=== PATIENT | female | born 1940 | race Caucasian/White ===

== ENCOUNTER 2022-08-18 14:56 | Outpatient (CLI) | payer MEDICARE ==
[2022-08-18 19:56] LABS: BASOPHILS % (AUTO) 0.5 %; EOSINOPHILS # (AUTO) 0.2 10^3/uL (0.0-0.7); EOSINOPHILS % (AUTO) 2.9 %; HCT - HEMATOCRIT 44.6 % (37.0-47.0); HGB - HEMOGLOBIN 14.2 g/dL (12.0-16.0); LYMPHOCYTES # (AUTO) 1.2 10^3/uL (1.5-3.5); MEAN CORPUSCULAR HEMOGLOBIN 28.5 pg (27.0-31.0); MEAN CORPUSCULAR HGB CONC 31.8 g/dL (32.0-36.0); MEAN CORPUSCULAR VOLUME 89.4 fL (81.0-99.0); MEAN PLATELET VOLUME 10.4 fL (7.9-10.8); MONOCYTES # (AUTO) 0.5 10^3/uL (0.0-1.0); MONOCYTES % (AUTO) 7.7 %; NEUTROPHILS # (AUTO) 4.1 10^3/uL (1.5-6.6); NEUTROPHILS % (AUTO) 68.4 %; PLT - PLATELET COUNT 224 10^3/uL (130-450); RED BLOOD COUNT 4.99 10^6/uL (4.20-5.40); RED CELL DISTRIBUTION WIDTH 12.6 % (12.0-15.0)
[2022-08-18 20:14] LABS: ALBUMIN 4.5 g/dL (3.2-5.5); ALBUMIN/GLOBULIN RATIO 1.7 (1.0-2.2); BILIRUBIN,TOTAL 0.4 mg/dL (0.2-1.0); CALCIUM 9.3 mg/dL (8.5-10.3); CREATININE 0.9 mg/dL (0.4-1.0); POTASSIUM 3.8 mmol/L (3.5-5.0); TOTAL PROTEIN 7.2 g/dL (6.7-8.2)
[2022-08-18 20:30] LABS: FERRITIN 237.7 ng/mL (11.0-306.8)
== END 2022-08-18 14:57 | disposition home or self-care (01) ==
LOC: LAB.S 14:56
PROVIDERS: ATTEND Family Medicine
DX: D51.9 Vitamin B12 deficiency anemia, unspecified (principal); R53.83 Other fatigue; R79.0 Abnormal level of blood mineral
CPT/HCPCS: 36415; 80053; 82607; 82728; 83540; 84466; 85025

== ENCOUNTER 2023-03-24 09:00 | Day surgery (SDC) | payer MEDICARE ==
[2023-03-24] MEDS ORDERED: LACTATED RINGERS 1,000 ML IV ONE (09:17)
--- NOTE | 2023-03-24 10:05 | ANESTHESIA ---
Pre-Anesthesia VS, & Labs - Diagnosis screening, gerd - Procedure egd, colonoscopy Vital Signs: Temp Pulse Resp BP Pulse Ox O2 Flow Rate 36.4 C L 68 16 158/82 H 98 03/24/23 09:24 03/24/23 09:24 03/24/23 09:24 03/24/23 09:24 03/24/23 09:24 Height: 5 ft 2 in Weight (kg): 59 kg Body Mass Index: 23.8 BMI Classification: Normal - NPO >8 hours - Is Patient ?: No - Lab Results Lab results reviewed: Yes Home Medications and Allergies Home Medications: Ambulatory Orders Calcium/Magnesium/Vitamin D3 [Cj-Mag Complex 300-150 mg Tab] 1 each PO DAILY 03/24/23 Cholecalciferol [Vitamin D3] 5,000 unit PO DAILY 03/24/23 Cyanocobalamin (Vitamin B-12) [B-12] 1,000 mcg PO DAILY 03/24/23 L. Reuteri/L. Rhamnosus [Fem Dophilus 1 Billion Cfu Cap] 1 each PO DAILY Quercetin 500 mg PO DAILY 03/24/23 Vitamin K2 [Mk-7] 90 mcg PO DAILY 03/24/23 Calcium/Magnesium/Vitamin D3 [Cj-Mag Complex 300-150 mg Tab] 1 each PO DAILY 03/24/23 Cholecalciferol [Vitamin D3] 5,000 unit PO DAILY 03/24/23 Cyanocobalamin (Vitamin B-12) [B-12] 1,000 mcg PO DAILY 03/24/23 L. Reuteri/L. Rhamnosus [Fem Dophilus 1 Billion Cfu Cap] 1 each PO DAILY 03/24/23 Quercetin 500 mg PO DAILY 03/24/23 Vitamin K2 [Mk-7] 90 mcg PO DAILY 03/24/23 Allergies/Adverse Reactions: Allergies Allergy/AdvReac Type Severity Reaction Status Date / Time No Known Drug Allergies Allergy Verified 03/24/23 09:16 Anes History & Medical History - Anesthetic History Anesthesia Complications: reports: No previous complications, Opioid sensitivity Family history of Anesthesia Complications: Denies Family history of Malignant Hyperthermia: Denies - Medical History Cardiovascular: reports: None Pulmonary: reports: None Gastrointestinal: reports: GERD Urinary: reports: None Musculoskeletal: reports: None Endocrine/Autoimmune: reports: None Skin: reports: None - Surgical History General: reports: Appendectomy Eyes Ears Nose Throat (EENT): reports: Tonsil/Adenoidectomy Gynecologic: reports: Hysterectomy Exam General: Alert, Oriented x3, Cooperative Dental: WNL, Other (some mild c/o pain when jaw opened too far) Mouth Openin Fingerbreadth Neck Mobility: Normal Mallampati classification: II Respiratory: Lungs clear, Normal breath sounds, No respiratory distress Cardiovascular: Regular rate Neurological: Normal speech Mental/Cognitive Status: Alert/Oriented X3, Normal for patient Cognitive Status: Within normal limits Plan Anesthesia Type: Total IV Consent for Procedure(s) Verified and Reviewed: Yes Code Status: Attempt Resuscitation ASA classification: 2-Mild systemic disease Is this case an emergency?: No
[2023-03-24] MEDS ORDERED: PROPOFOL 500 MG/50 ML 500 MG/50 ML VIAL ONE (10:06)
[2023-03-24] MEDS ORDERED: MIDAZOLAM 2 MG/2 ML VIAL ONE (10:06)
[2023-03-24] MEDS ORDERED: LIDOCAINE-PF 2% 10 ML AMP SUBQ ONE (10:06)
[2023-03-24] MEDS ORDERED: LACTATED RINGERS 600 ML IV ONE (11:01)
[2023-03-24] MEDS ORDERED: IPRATROPIUM/ALBUTEROL 3 ML NEB INH ONE (11:47)
[2023-03-24 12:24] VITALS: O2SAT 98
[2023-03-24 12:34] VITALS: BP 110/88
--- NOTE | 2023-03-24 14:33 | ANESTHESIA POST OP EVALUATION ---
Anesthesia Post Eval - Post Anesthesia Eval Vitals: Last Vital Signs Temp 36.5 C 03/24/23 12:15 Pulse 71 03/24/23 12:15 Resp 14 03/24/23 12:15 BP 110/88 H 03/24/23 12:15 Pulse Ox 98 03/24/23 12:15 O2 Flow Rate CV Function Including HR & BP: Stable Pain Control: Satisfactory Nausea & Vomiting: Negative Mental Status: Baseline Respiratory Status: Airway Patent (throat pain resolved with tea) Hydration Status: Satisfactory Anesthesia Complications: None
== END 2023-03-24 09:01 | disposition home or self-care (01) ==
LOC: SDS 09:00
PROVIDERS: ATTEND Surgery
DX: R10.13 Epigastric pain (principal); K59.00 Constipation, unspecified; K29.50 Unspecified chronic gastritis without bleeding; K44.9 Diaphragmatic hernia without obstruction or gangrene; K63.89 Other specified diseases of intestine; K64.2 Third degree hemorrhoids; K21.9 Gastro-esophageal reflux disease without esophagitis
CPT/HCPCS: 43235; 45378; J7120

== ENCOUNTER 2023-12-01 13:29 | Outpatient (CLI) | payer MEDICARE ==
--- NOTE | 2023-12-02 14:32 | Mammography Report ---
BILATERAL DIGITAL SCREENING MAMMOGRAM 3D/2D: 12/01/2023 CLINICAL: Routine screening. Comparison is made to exam dated: 12/13/2021 mammogram - [facility]. The breasts are heterogeneously dense, which may obscure small masses (category c / 51-75% glandular tissue). No significant masses, calcifications, or other findings are seen in either breast. There has been no significant interval change. IMPRESSION: NEGATIVE There is no mammographic evidence of malignancy. A 1 year screening mammogram is recommended. Based on the Tyrer Cuzick model (a risk assessment model) the patient's lifetime risk is 0.4% and her 10 year risk is 0.0%. According to the ACR, ACS, and NCCN guidelines, an annual breast MRI exam nigel g with mammogram is recommended if the patient's lifetime risk is 20% or greater. This exam was interpreted at Station ID: [id number]. NOTE: For mammograms, a report in lay terms will be sent to the patient. Approximately 15% of breast malignancies will not be visualized mammographically. In the management of a palpable breast mass, a negative mammogram must not discourage biopsy of a clinically suspicious lesion. Electronically Signed By: Gabriela Cuevas M.D., Ph.D. eb/penrad:12/01/2023 14:21:06 ACR BI-RADS Category 1: Negative 3341F PARENCHYMAL PATTERN: (D) - The breast(s) demonstrate(s) heterogeneously dense fibroglandular bree marcus. BI-RADS CATEGORY: (1) - 1 RECOMMENDATION: (ANNUAL) - Recommend routine annual screening mammography. [id number] 1 year screening LATERALITY: (B)
== END 2023-12-01 13:30 | disposition home or self-care (01) ==
LOC: DI 13:29
PROVIDERS: ATTEND Family Medicine
DX: Z12.31 Encounter for screening mammogram for malignant neoplasm of breast (principal); R92.333 Mammographic heterogeneous density, bilateral breasts

== ENCOUNTER 2023-12-03 13:19 | Outpatient (CLI) | payer MEDICARE ==
[2023-12-03 19:56] LABS: BASOPHILS % (AUTO) 0.7 %; EOSINOPHILS # (AUTO) 0.1 10^3/uL (0.0-0.7); EOSINOPHILS % (AUTO) 2.2 %; HCT - HEMATOCRIT 44.1 % (37.0-47.0); LYMPHOCYTES # (AUTO) 1.4 10^3/uL (1.5-3.5); LYMPHOCYTES % (AUTO) 24.7 %; MEAN CORPUSCULAR HEMOGLOBIN 28.1 pg (27.0-31.0); MEAN CORPUSCULAR HGB CONC 31.7 g/dL (32.0-36.0); MEAN CORPUSCULAR VOLUME 88.6 fL (81.0-99.0); MEAN PLATELET VOLUME 10.5 fL (7.9-10.8); MONOCYTES # (AUTO) 0.5 10^3/uL (0.0-1.0); MONOCYTES % (AUTO) 8.5 %; NEUTROPHILS # (AUTO) 3.5 10^3/uL (1.5-6.6); NEUTROPHILS % (AUTO) 63.7 %; PLT - PLATELET COUNT 246 10^3/uL (130-450); RED BLOOD COUNT 4.98 10^6/uL (4.20-5.40); RED CELL DISTRIBUTION WIDTH 12.2 % (12.0-15.0); WHITE BLOOD COUNT 5.5 x10^3/uL (4.8-10.8)
[2023-12-03 20:09] LABS: ALBUMIN 4.4 g/dL (3.2-5.5); ALBUMIN/GLOBULIN RATIO 1.9 (1.0-2.2); BILIRUBIN,TOTAL 0.3 mg/dL (0.2-1.0); CALCIUM 9.4 mg/dL (8.5-10.3); CREATININE 0.8 mg/dL (0.6-1.3); CRP HIGH SENSITIVITY 0.5 mg/L; POTASSIUM 3.8 mmol/L (3.5-4.5); TOTAL PROTEIN 6.7 g/dL (6.4-8.9)
[2023-12-03 20:28] LABS: THYROID STIMULATING HORMONE 1.38 uIU/mL (0.34-5.60)
[2023-12-03 20:37] LABS: FERRITIN 226.7 ng/mL (11.0-306.8)
[2023-12-03 20:58] LABS: ESTIMATED AVERAGE GLUCOSE 108 mg/dL (70-100); HEMOGLOBIN A1c% 5.4 % (4.27-6.07)
[2023-12-05 05:09] LABS: ESTRADIOL <5.0 pg/mL (0.0-54.7); PROGESTERONE 0.1 ng/mL (.)
[2023-12-05 09:07] LABS: VITAMIN D 25-HYDROXY 88.3 ng/mL (30.0-100.0)
== END 2023-12-03 13:20 | disposition home or self-care (01) ==
LOC: LAB.S 13:19
PROVIDERS: ATTEND Family Medicine
DX: R53.83 Other fatigue (principal); E03.9 Hypothyroidism, unspecified; N95.1 Menopausal and female climacteric states; E78.5 Hyperlipidemia, unspecified; D64.9 Anemia, unspecified; K30 Functional dyspepsia
CPT/HCPCS: 36415; 80053; 82306; 82626; 82670; 82728; 83036; 83090; 83540; 84144; 84439; 84443; 84466; 84480; 84481; 84482; 85025; 86141